=== PATIENT | male | born 1990 | race Two or more races ===

== ENCOUNTER 2025-04-01 16:22 | Emergency (ER) | payer OTHER, SELFPAY ==
[2025-04-01 16:23] VITALS: BP 134/68; PULSE 114; RESP 18; TEMP 36.8; O2SAT 98
--- NOTE | 2025-04-01 18:04 | ED.MALEGU ---
HPI - Male Genitourinary General Chief complaint: Urogenital-Male <Sydnee Bruno APRN - Last Filed: 04/02/25 19:25> Stated complaint: male issue <Sydnee Bruno APRN - Last Filed: 04/02/25 19:25> Time Seen by Provider: 04/01/25 18:00 <Sydnee Bruno APRN - Last Filed: 04/02/25 19:25> Focused HPI: Patient is a 35-year-old [place]er male who presents to the ER with urinary symptoms. He reports his symptoms started approximately 2 weeks ago. Patient endorses burning with urination, along with a feeling of incomplete emptying. He denies any abdominal pain, recent fevers, or back pain. Patient denies any medical history pertinent to this ER visit. He reports his urine has been yellow and he denies any penile discharge. Patient would like to be tested for sexually transmitted diseases. GENERAL: Well-appearing, well-nourished, and in no acute distress. HEAD: Normocephalic, atraumatic. CHEST: Clear to auscultation. ?No respiratory distress. HEART: Regular rate and rhythm.? NEURO: ?Alert and oriented x3. Patient screened in triage and initial orders placed.? ?Additional care and disposition to be based upon?diagnostic testing and treatment. <Sydnee Bruno APRN - Last Filed: 04/02/25 19:25> Related Data Allergies/Adverse reactions: Allergies Allergy/AdvReac Type Severity Reaction Status Date / Time No Known Allergies Allergy Verified 04/01/25 16:25 <Sydnee Bruno APRN - Last Filed: 04/02/25 19:25> Review of Systems Review of Systems: Gen.: Denies fevers or chills Eyes: Denies eye pain or visual change ENT: Denies congestion Respiratory: Denies shortness of breath or cough CV: Denies chest pain or palpitations GI: Denies abdominal pain nausea, emesis or diarrhea : Dysuria Musculoskeletal: Denies back pain or muscle pain Neuro: Denies numbness, tingling, weakness or focal weakness Skin: Denies rash Except as documented, all other systems reviewed and negative <Mario Obando MD - Last Filed: 04/02/25 19:39> Exam Narrative: APPEARANCE: No acute distress, nontoxic, resting in bed EYES: EOMI HEENT: Normocephalic, atraumatic, OMM RESPIRATORY: No respiratory distress Clear to auscultation bilaterally with no rhonchi wheezing or rales. CARDIOVASCULAR: Regular rate and rhythm without murmurs rubs or gallops. ABDOMINAL: Soft, nontender, nondistended, no rebound or guarding : Penis without lesions or tenderness. No drainage. Testicles nontender, no palpable masses. No hernias. MUSCULOSKELETAl: Moves all extremities. No clubbing, cyanosis or edema. NEURO: Awake and alert. Following commands, speech normal, no focal deficits SKIN:: Warm, dry. No rashes lesions or abrasions PSYCHIATRIC: Normal affect/mood, <Mario Obando MD - Last Filed: 04/02/25 19:39> Course Vital Signs Vital signs: Vital Signs Temperature 98.2 F 04/01/25 16:23 Pulse Rate 114 H 04/01/25 16:23 Respiratory Rate 18 04/01/25 16:23 Blood Pressure 134/68 04/01/25 16:23 Pulse Oximetry 98 04/01/25 16:23 Temperature 98.2 F 04/01/25 16:23 Pulse Rate 100 04/01/25 21:44 Respiratory Rate 14 04/01/25 21:44 Blood Pressure 145/95 H 04/01/25 21:44 Pulse Oximetry 100 04/01/25 21:44 <Sydnee Bruno APRN - Last Filed: 04/02/25 19:25> Vital Signs Temperature 98.2 F 04/01/25 16:23 Pulse Rate 114 H 04/01/25 16:23 Respiratory Rate 18 04/01/25 16:23 Blood Pressure 134/68 04/01/25 16:23 Pulse Oximetry 98 04/01/25 16:23 Temperature 98.2 F 04/01/25 16:23 Pulse Rate 100 04/01/25 21:44 Respiratory Rate 14 04/01/25 21:44 Blood Pressure 145/95 H 04/01/25 21:44 Pulse Oximetry 100 04/01/25 21:44 <Mario Obando MD - Last Filed: 04/02/25 19:39> MDM - Male Genitourinary MDM Narrative Medical decision making narrative: 35 yo male presenting for dysuria. No lesions on the penis. No testicular tenderness. UA and STI testing negative. Patient only sexually active with . He will be covered for chlamydia/gonorrhea which will also cover typical UTIs given his symptoms. Patient advised to follow up with his pcp in the next week for reevaluation. Patient was agreeable to this plan. Given strict return precautions. <Mario Obando MD - Last Filed: 04/02/25 19:39> Differential Diagnosis Differential diagnosis: Likely urinary tract infection, urethritis, epididymitis and prostatitis <Mario Obando MD - Last Filed: 04/02/25 19:39> Lab Data Attestation: I reviewed the patient's lab results. <Mario Obando MD - Last Filed: 04/02/25 19:39> Labs: Lab Results 04/01/25 Range/Units 18:08 Urine Color Yellow (Yellow) Urine Appearance Clear (Clear) Urine pH 8.0 (5.0-9.0) Ur Specific [place] 1.020 (1.001-1.035) Urine Protein Negative (Negative) mg/dL Urine Glucose (UA) Negative (Negative) mg/dL Urine Ketones Negative (Negative) mg/dL Ur Blood (Man) Negative (Negative) Urine Nitrate Negative (Negative) Urine Bilirubin Negative (Negative) Urine Urobilinogen 0.2 (<2.0) mg/dL Leukocyte Esterase Rfl Negative (Negative) CUAUHTEMOC/UL C. trachomatis (PCR) Not detected (NOT DETECTE) N. gonorrhoeae (PCR) Not detected (NOT DETECTE) T. vaginalis (PCR) Not detected (NOT DETECTE) <Sydnee Bruno APRN - Last Filed: 04/02/25 19:25> Lab Results 04/01/25 Range/Units 18:08 Urine Color Yellow (Yellow) Urine Appearance Clear (Clear) Urine pH 8.0 (5.0-9.0) Ur Specific [place] 1.020 (1.001-1.035) Urine Protein Negative (Negative) mg/dL Urine Glucose (UA) Negative (Negative) mg/dL Urine Ketones Negative (Negative) mg/dL Ur Blood (Man) Negative (Negative) Urine Nitrate Negative (Negative) Urine Bilirubin Negative (Negative) Urine Urobilinogen 0.2 (<2.0) mg/dL Leukocyte Esterase Rfl Negative (Negative) CU[place]HTEMOC/UL C. trachomatis (PCR) Not detected (NOT DETECTE) N. gonorrhoeae (PCR) Not detected (NOT DETECTE) T. vaginalis (PCR) Not detected (NOT DETECTE) <Mario Obando MD - Last Filed: 04/02/25 19:39> Discharge Plan Discharge Clinical Impression: Urinary tract infection Qualifiers: Urinary tract infection type: urethritis Qualified Code(s): N34.2 - Other urethritis <Sydnee Bruno APRN - Last Filed: 04/02/25 19:25> Patient Disposition: Home <Sydnee Bruno APRN - Last Filed: 04/02/25 19:25> Condition: Stable <Sydnee Bruno APRN - Last Filed: 04/02/25 19:25> Instructions: Antibiotic Form, Urinary Tract Infection in Men (ED) <Sydnee Bruno APRN - Last Filed: 04/02/25 19:25> Patient Language: Icelandic <Sydnee Bruno APRN - Last Filed: 04/02/25 19:25> Prescriptions: New doxycycline hyclate 100 mg capsule 100 mg PO DAILY Qty: 13 0RF <Sydnee Bruno APRN - Last Filed: 04/02/25 19:25> Follow-up/Referrals: PHYSICIAN NOT ON STAFF,NONSTAFF [Primary Care Provider] - Onesimo Cardoza MD [Physician] - <Sydnee Bruno APRN - Last Filed: 04/02/25 19:25>
[2025-04-01 18:15] LABS: Add Urine Microscopic? NO; Appearance Urine Clear (Clear); Glucose Urine UA Negative (Negative); Leukocyte Esterase Ur Negative LEU/UL (Negative); Nitrate Urine Negative (Negative); Specific Grav Ur 1.020 (1.001-1.035)
[2025-04-01 19:18] LABS: Trichomonas Vag PCR NOT DETECTED (NOT DETECTE)
--- NOTE | 2025-04-01 20:51 | PC.NURSE ---
Dr. Obando at bedside with this RN assessing pt. [place] audio interpretor used.
--- NOTE | 2025-04-01 21:00 | PC.NURSE ---
Bladder scan revealed 53 mL in bladder. aware.
[2025-04-01 21:44] VITALS: BP 145/95; PULSE 100; RESP 14; O2SAT 100
[2025-04-01] MEDS: DOXYCYCLINE HYCLATE 100 MG TABLET PO (21:46)
[2025-04-01] MEDS: LIDOCAINE 1% LOCAL INJ 10 ML VIAL (21:47)
[2025-04-01] MEDS: cefTRIAXone 1 GM VIAL 0.5 GM IM (21:47)
== END 2025-04-01 22:15 | disposition home or self-care (01) ==
LOC: ANHED 21:09
PROVIDERS: Registered Nurse; Emergency Provider Student in an Organized Health Care Education/Training Program
DX: N39.0 Urinary tract infection, site not specified (principal); Z11.3 Encounter for screening for infections with a predominantly sexual mode of transmission
CPT/HCPCS: 81003; 87491; 87591; 87661; 96372; 99283; A9270; J0696; J2003

== ENCOUNTER 2025-04-06 18:09 | Emergency (ER) | payer OTHER, SELFPAY ==
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
[2025-04-06 18:23] VITALS: BP 147/86; PULSE 117; RESP 18; TEMP 36.4; O2SAT 100
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
[2025-04-06] MEDS: ACETAMINOPHEN 500 MG TABLET 1000 MG PO (22:31)
[2025-04-06] MEDS: LIDOCAINE 5% PATCH 1 PATCH TRANSDERM (22:31)
[2025-04-06] MEDS: KETOROLAC (*BKC) 60 MG/2 ML VIAL IM (22:33)
--- NOTE | 2025-04-06 22:41 | PC.NURSE ---
RN used epic beacon analyst to speak with patient about discharge, medications and prescriptions. No other needs at this time.
== END 2025-04-06 22:44 | disposition home or self-care (01) ==
PROVIDERS: Emergency Provider Physician Assistant
DX: S16.1XXA Strain of muscle, fascia and tendon at neck level, initial encounter (principal); S39.012A Strain of muscle, fascia and tendon of lower back, initial encounter; V49.40XA Driver injured in collision with unspecified motor vehicles in traffic accident, initial encounter
CPT/HCPCS: 70450; 72125; 72131; 96372; 99284; A9270; J1885